=== PATIENT | male | born 1990 | race Caucasian/White ===

== ENCOUNTER 2019-12-12 17:16 | Emergency (ER) | payer SELFPAY ==
[~2019-12-12] VITALS: Ht 170.2 cm; Wt 91.6 kg
[2019-12-12 17:24] VITALS: BP 165/126; Ht 170.2 cm; Wt 91.6 kg
== END 2019-12-12 19:16 | disposition home or self-care (01) ==
LOC: ED 17:16
DX: S93.692A Other sprain of left foot, initial encounter (principal); J45.909 Unspecified asthma, uncomplicated; X58.XXXA Exposure to other specified factors, initial encounter; Y93.67 Activity, basketball; Y92.89 Other specified places as the place of occurrence of the external cause; Y99.8 Other external cause status
CPT/HCPCS: Q0092